=== PATIENT | male | born 2000 | race African-American/Black ===

== ENCOUNTER 2020-12-10 04:17 | Emergency (ER) | payer OTHER ==
[~2020-12-10] VITALS: Ht 167.6 cm; Wt 75.0 kg
--- NOTE | 2020-12-10 04:40 | NUR ---
pt cut left thumb while cutting onions. pt dropped knife and tried to catch it cutting his 4th and 5 fingers on his right hand. VSS. Pt denies and med hx. bleeding controlled with gauze. call randi irwin
[2020-12-10] MEDS ORDERED: BUPIVACAINE 0.25% ONE (04:59)
[2020-12-10] MEDS ORDERED: LIDOCAINE-MPF 1%, 5ML ONE (04:59)
[2020-12-10] MEDS ORDERED: LIDOCAINE 1%, 10ML INFIL ONE (05:00)
[2020-12-10] MEDS ORDERED: BUPIVACAINE/PF 0.5% INFIL ONE (05:00)
[2020-12-10] MEDS ORDERED: BACITRACIN ZINC OINT 500U/GM, 0.9 GM ONE (06:36)
--- NOTE | 2020-12-10 06:50 | NUR ---
REPORT FROM JENNIFER LIM
--- NOTE | 2020-12-10 06:58 | NUR ---
CARE TRANSFERED. REPORT GIVEN TO RAPHAEL ESCALATNE
[2020-12-10] MEDS ORDERED: NAPROXEN 500 MG TABLET ONE (07:14)
[2020-12-10] MEDS ORDERED: CEPHALEXIN 500 MG CAPSULE ONE (07:14)
--- NOTE | 2020-12-10 07:26 | NUR ---
WOUND CARE COMPLETED. REVIEWED HOME CARE/IMPORTANCE OF F/U WITH DR. BARRON TEACH BACK SUCCESSFUL
[2020-12-10] MEDS ORDERED: CEPHALEXIN 500 MG CAPSULE PO ONE (07:30)
[2020-12-10 07:46] VITALS: BP 135/79
[2020-12-10] MEDS ORDERED: NAPROXEN 500 MG TABLET PO ONE (08:00)
== END 2020-12-10 07:49 | disposition home or self-care (01) ==
LOC: ED 07:01
DX: S61.214A Laceration without foreign body of right ring finger without damage to nail, initial encounter (principal); S61.216A Laceration without foreign body of right little finger without damage to nail, initial encounter; S61.012A Laceration without foreign body of left thumb without damage to nail, initial encounter; X58.XXXA Exposure to other specified factors, initial encounter; Y93.89 Activity, other specified; Y92.89 Other specified places as the place of occurrence of the external cause; Y99.8 Other external cause status
CPT/HCPCS: 12002; 99283; J3490; S0020

== ENCOUNTER 2020-12-20 11:37 | Emergency (ER) | payer SELFPAY ==
[~2020-12-20] VITALS: Ht 170.2 cm; Wt 76.3 kg
[2020-12-20 11:51] VITALS: BP 112/63
== END 2020-12-20 12:40 | disposition home or self-care (01) ==
LOC: ED 12:07
DX: S61.412D Laceration without foreign body of left hand, subsequent encounter (principal); S61.411D Laceration without foreign body of right hand, subsequent encounter; X58.XXXD Exposure to other specified factors, subsequent encounter
CPT/HCPCS: 99281